=== PATIENT | male | born 1970 | race Caucasian/White ===

== ENCOUNTER 2017-09-15 00:21 | Emergency (ER) | payer OTHER ==
[~2017-09-15] VITALS: Ht 172.7 cm; Wt 65.8 kg
[2017-09-15 00:26] VITALS: BP 128/68
[2017-09-15] MEDS ORDERED: IBUPROFEN 600 MG TAB PO ONE (04:00)
== END 2017-09-15 05:26 | disposition home or self-care (01) ==
LOC: ER 00:23
DX: S80.02XA Contusion of left knee, initial encounter (principal); F17.210 Nicotine dependence, cigarettes, uncomplicated; Z88.8 Allergy status to other drugs, medicaments and biological substances; W20.8XXA Other cause of strike by thrown, projected or falling object, initial encounter; Y93.89 Activity, other specified; Y92.89 Other specified places as the place of occurrence of the external cause; Y99.8 Other external cause status
CPT/HCPCS: 73562

== ENCOUNTER 2023-01-05 17:29 | Emergency (ER) | payer OTHER ==
[~2023-01-05] VITALS: Ht 172.7 cm; Wt 62.4 kg
[2023-01-05] MEDS ORDERED: SODIUM CHLORIDE 0.9% 1,000 ML IV ONE (18:15)
[2023-01-05] MEDS ORDERED: INSULIN LISPRO (HUMAN) 100 UNITS/ML ML SC ONE ×2 (18:15→20:30)
[2023-01-05 18:47] LABS: Basophils # (auto) 0.1 10 ^3/uL (0-0.2); Basophils % (auto) 0.6 % (0.0-2.0); Eosinophils # (auto) 0.2 10 ^3/uL (0-0.8); Eosinophils % (auto) 1.7 % (0.0-7.0); Hematocrit 41.6 % (41.0-53.0); Hemoglobin 14.2 g/dL (13.5-17.5); Lymphocytes # (auto) 1.7 10 ^3/uL (0.4-5.4); Lymphocytes % (auto) 17.6 % (10.0-50.0); Mean Corpuscular Hemoglobin 30.4 pg (28.0-32.0); Mean Corpuscular Hgb Conc. 34.1 g/dL (32.0-36.0); Monocytes # (auto) 0.8 10 ^3/uL (0-1.3); Monocytes % (auto) 8.1 % (0.0-12.0); Neutrophils # (auto) 7.1 10 ^3/uL (1.6-8.6); Red Blood Cells 4.67 10^6/uL (4.5-5.90); Red Cell Distribution Width 13.7 % (11.8-14.3); White Blood Cell 9.9 10^3/uL (4.4-10.8)
[2023-01-05 18:53] LABS: Albumin 3.6 g/dL (3.4-5.0); Calcium 8.5 mg/dL (8.5-10.1); Potassium 4.2 mmol/L (3.5-5.1)
[2023-01-05 18:56] LABS: BUN/Creatinine Ratio 16.1 (10.0-20.0); Bilirubin, Total 0.4 mg/dL (0.2-1.0); Total Protein 7.4 g/dL (6.4-8.2)
[2023-01-05 18:58] LABS: Urine Bacteria NONE SEEN /hpf (None Seen); Urine Blood Negative /uL (Negative); Urine Specific Gravity 1.029 (1.001-1.035); Urine WBC <1 /hpf (0 - 3)
[2023-01-05] MEDS ORDERED: LEVEMIR SC (22:44)
[2023-01-05 23:00] VITALS: BP 117/72
== END 2023-01-05 23:15 | disposition home or self-care (01) ==
LOC: ER 17:29
DX: E11.65 Type 2 diabetes mellitus with hyperglycemia (principal); F17.210 Nicotine dependence, cigarettes, uncomplicated; Z91.011 Allergy to milk products
CPT/HCPCS: 36415; 80053; 81001; 82962; 83880; 84484; 85025; 96360; 96372; 99283; J1815; J7030

== ENCOUNTER 2024-01-29 12:38 | Inpatient (IN) | payer OTHER, MEDICAID ==
[~2024-01-29] VITALS: Ht 172.7 cm; Wt 59.9 kg
[~2024-01-29 12:38] MED LIST: LEVEMIR SC
[2024-01-29] MEDS: SODIUM CHLORIDE 0.9% 1,000 ML IV ONE ×2 (13:13→21:15)
[2024-01-29 13:31] LABS: Basophils # (auto) 0 10 ^3/uL (0-0.2); Basophils % (auto) 0.2 % (0.0-2.0); Eosinophils # (auto) 0.2 10 ^3/uL (0-0.8); Eosinophils % (auto) 1.4 % (0.0-7.0); Hematocrit 45.2 % (41.0-53.0); Hemoglobin 15.4 g/dL (13.5-17.5); Lymphocytes # (auto) 1.7 10 ^3/uL (0.4-5.4); Mean Corpuscular Hemoglobin 30.9 pg (28.0-32.0); Mean Corpuscular Hgb Conc. 34.1 g/dL (32.0-36.0); Mean Corpuscular Volume 90.4 fL (80.0-100.0); Monocytes # (auto) 0.8 10 ^3/uL (0-1.3); Monocytes % (auto) 6.5 % (0.0-12.0); Neutrophils # (auto) 10.4 10 ^3/uL (1.6-8.6); Neutrophils % (auto) 78.9 % (37.0-80.0); Red Blood Cells 4.99 10^6/uL (4.5-5.90); Red Cell Distribution Width 13.7 % (11.8-14.3); White Blood Cell 13.1 10^3/uL (4.4-10.8)
[2024-01-29 13:44] LABS: Alanine Aminotransferase 12 U/L (7-40); Albumin 4.6 g/dL (3.2-4.8); Alkaline Phosphatase 78 U/L (46-116); Anion Gap 6 (5-15); Aspartate Aminotransferase 12 U/L (13-40); BUN/Creatinine Ratio 21.1 (10.0-20.0); Blood Urea Nitrogen 24 mg/dL (9-23); Carbon Dioxide 32 mmol/L (20-30); Chloride 102 mmol/L (98-107); Glucose 177 mg/dL (74-106); Potassium 4.2 mmol/L (3.5-5.1); Sodium 140 mmol/L (136-145)
[2024-01-29 13:45] LABS: Bilirubin, Total 0.7 mg/dL (0.2-1.0); Total Protein 8.2 g/dL (5.7-8.2)
[2024-01-29 14:21] LABS: Lactic Acid w/Reflex 3.2 mmol/L (0.4-2.0)
[2024-01-29] MEDS: VANCOMYCIN 1GM/200ML 200 ML IV ONE (14:45)
[2024-01-29] MEDS: PIPERACILLIN-TAZOB 3.375GM 100 ML IV ONE (14:54)
[2024-01-29 14:59] VITALS: PULSE 80; RESP 18; O2SAT 97
[2024-01-29 15:00] LABS: INR 1.02 (0.9-1.15); Partial Thromboplastin Time 26.8 SEC (24.5-34.5); Prothrombin Time 10.8 sec (9.3-11.8)
[2024-01-29 19:50] VITALS: PULSE 76; RESP 16; O2SAT 98
[2024-01-29] MEDS ORDERED: VANCOMYCIN PER PHARMACY 0 MG IV SCH (21:00)
[2024-01-29] MEDS ORDERED: DEXTROSE (50%) 50ML SYRG IV PRN (21:00)
[2024-01-29] MEDS: IOHEXOL 350 MG/ML 100ML IJ ONE (21:05)
[2024-01-29] MEDS ORDERED: HYDROcodone-ACET 5/325MG TAB PO PRN (21:15)
[2024-01-29] MEDS ORDERED: DOCUSATE SOD 100 MG CAP PO PRN (21:15)
[2024-01-29] MEDS ORDERED: NITROGLYCERIN 0.4 MG SL TAB SL PRN (21:15)
[2024-01-29] MEDS ORDERED: ACETAMINOPHEN 325 MG TAB PO PRN (21:15)
[2024-01-29] MEDS ORDERED: MORPHINE SULFATE INJ 2 MG/ml SYRG IV PRN (21:15)
[2024-01-29] MEDS: ACCU-CHEK COMFORT CURVE STRIP VI SCH (22:00)
[2024-01-29] MEDS: CEFEPIME 1GM/ 50ML 50 ML IV SCH (22:00)
[2024-01-29] MEDS: InsuLIN REG 1unit/0.01ml Soln (100units/ml) SC SCH (22:00)
[2024-01-30] MEDS: VANCOMYCIN 1GM/200ML 200 ML IV ONE (03:46)
[2024-01-30 07:21] LABS: Chloride 108 mmol/L (98-107); Potassium 4.3 mmol/L (3.5-5.1); Sodium 140 mmol/L (136-145)
[2024-01-30 07:22] LABS: Anion Gap 1 (5-15); Carbon Dioxide 31 mmol/L (20-30)
[2024-01-30 07:23] LABS: Basophils # (auto) 0 10 ^3/uL (0-0.2); Basophils % (auto) 0.2 % (0.0-2.0); Calcium 9.4 mg/dL (8.5-10.1); Eosinophils # (auto) 0.2 10 ^3/uL (0-0.8); Eosinophils % (auto) 1.3 % (0.0-7.0); Hematocrit 40.2 % (41.0-53.0); Hemoglobin 13.6 g/dL (13.5-17.5); Lymphocytes # (auto) 2.1 10 ^3/uL (0.4-5.4); Lymphocytes % (auto) 16.8 % (10.0-50.0); Mean Corpuscular Hemoglobin 30.4 pg (28.0-32.0); Mean Corpuscular Volume 89.6 fL (80.0-100.0); Monocytes # (auto) 1.2 10 ^3/uL (0-1.3); Monocytes % (auto) 9.7 % (0.0-12.0); Neutrophils # (auto) 8.8 10 ^3/uL (1.6-8.6); Red Blood Cells 4.48 10^6/uL (4.5-5.90); Red Cell Distribution Width 13.7 % (11.8-14.3); White Blood Cell 12.2 10^3/uL (4.4-10.8)
[2024-01-30 07:27] LABS: Glucose 85 mg/dL (74-106)
[2024-01-30 07:28] LABS: BUN/Creatinine Ratio 18.8 (10.0-20.0); Blood Urea Nitrogen 16 mg/dL (9-23)
[2024-01-30 09:12] VITALS: PULSE 104; RESP 16; O2SAT 93
[2024-01-30] MEDS ORDERED: CLIN1CAP70 PO (12:08)
[2024-01-30] MEDS ORDERED: LEVO500T91 PO (12:08)
[2024-01-30] MEDS: SILVER SULFADIAZINE 1 % TOPICAL CREAM 50GM TOP ONE (13:00)
[2024-01-30 14:55] VITALS: BP 122/62; PULSE 80; RESP 20; TEMP 98.4; O2SAT 97
== END 2024-01-30 15:20 | disposition home health service (06) | DRG 872 ==
LOC: ER 12:38 → TELE 21:23
PROVIDERS: ADMIT Internal Medicine; ATTEND Internal Medicine
DX: A41.9 Sepsis, unspecified organism (principal); L03.115 Cellulitis of right lower limb; L03.116 Cellulitis of left lower limb; E11.9 Type 2 diabetes mellitus without complications; I10 Essential (primary) hypertension; F17.210 Nicotine dependence, cigarettes, uncomplicated; S80.822A Blister (nonthermal), left lower leg, initial encounter; S80.821A Blister (nonthermal), right lower leg, initial encounter; X58.XXXA Exposure to other specified factors, initial encounter; Z91.09 Other allergy status, other than to drugs and biological substances; Z79.899 Other long term (current) drug therapy; Y93.89 Activity, other specified; Y92.89 Other specified places as the place of occurrence of the external cause; Y99.8 Other external cause status
CPT/HCPCS: 36415; 71045; 71275; 73630; 80048; 80053; 82962; 83605; 83880; 84484; 85025; 85379; 85610; 85730; 87040; 93970; 97163; G0378; J1815; J2543